=== PATIENT | female | born 1995 | race Caucasian/White ===

== ENCOUNTER 2023-04-21 13:54 | Observation (INO) | payer OTHER, MEDICAID, SELFPAY ==
[2023-04-21] VITALS (45 sets, daily range): BP systolic 71–130; BP diastolic 44–88; PULSE 59–98; RESP 12–43; TEMP 36.2–38.2; O2SAT 97–100; BMI 28.9; BMI 31.8
--- NOTE | 2023-04-21 | PATH_ITS ---
[facility] Accession Number: [id number] No. of containers..01 Tissue . 01 Material submitted: . endometrium - EMB . 01 Diagnosis: Endometrium, Curettage: Inflamed, necrotic, and degenerated chorionic villi, decidual tissues, and endometrium. Negative for gestational trophoblastic disease. [facility] 05/03/2023 1713 Local . 01 Electronically signed: . Krysten Holman MD, Pathologist NPI- [id number] . 01 Gross description: . The specimen is received fresh in a leaking container and subsequently placed in formalin per client, labeled with the patient's name, , and no additional designation, consists of large amount of hemorrhagic fluid that was turned into a cell block along with multiple red-medina spongy soft tissue fragments admixed with solidified hemorrhagic material aggregating to 6.4 x 5.6 x 0.7 cm. The specimen is submitted entirely in cassettes A1-A16 with the aforementioned cell block in A16. ([id number]) /MRV 04/27/2023 1437 Local . 01 Pathologist provided ICD-10: O02.1 . 01 CPT . 264210 Performed at: 01 [facility] [address] [place] [address] Suite [facility] [place], [place], [place] [id number] MD Vance Koch MD Phone: [phone]
[2023-04-21 14:24] LABS: Add Manual Diff / Slide Review NO; Basophils Absolute Auto 200 /uL (0-100); Basophils Percent Auto 1.3 % (0-2); Eosinophils Absolute Auto 100 /uL (0-450); Eosinophils Percent Auto 0.7 % (2-4); Hematocrit 34.4 % (36-46); Hemoglobin 11.1 g/dL (12.0-16.0); Lymphocytes Absolute Auto 2000 /uL (1100-4500); Lymphocytes Percent Auto 15.3 % (25-40); Mean Corpuscular HGB Conc 32.4 % (30-36); Mean Corpuscular Volume 83.1 fL (80-100); Monocytes Absolute Auto 700 /uL (0-900); Monocytes Percent Auto 5.2 % (3-14); Neutrophils Absolute Auto 10100 /uL (1500-7000); Neutrophils Percent Auto 77.5 % (50-75); Platelet Count 322 X10^3/uL (150-400); Red Blood Cell Count 4.14 X10^6/uL (4.0-5.2); Red Cell Distribution Width 23.2 % (11.6-14.8)
[2023-04-21] MEDS: ONDANSETRON 4 MG/2 ML INJ IV (14:30)
--- NOTE | 2023-04-21 14:30 | DI.US.S_ITS ---
PROCEDURE: US PELVIC COMPLETE INDICATIONS: 1.5 WEEK WITH TWIN VAGINAL DELIVERY. HEMORRHAGE X 1 DAY. Positive beta HCG. TECHNIQUE: Real-time scanning was performed of the pelvic organs, with image documentation. Additional endovaginal scanning was necessary due to incomplete visualization of the adnexal and endometrial structures by transabdominal scanning. COMPARISON: None. FINDINGS: Uterus: Uterus is anteverted and enlarged in size at 13.7 x 9.1 x 8.1 cm. The myometrium is heterogeneous, with increased vascularity. The endometrium measures 1.8 mm combined thickness. Multiple heterogeneous regions within the endometrium, without vascularity. Ovaries: The right ovary measures 3 x 1.6 x 1.3 cm, with a calculated ovarian volume of 3 cc. The left ovary measures 3.4 x 1.0 x 1.6 cm, with a calculated ovarian volume of 2 point cc. The ovaries have a normal sonographic appearance. Less than 12 follicles can be seen in each ovary. No adnexal masses are seen. Other: No pathologic free abdominal or pelvic fluid. IMPRESSION: Post gravid uterus. Avascular and debris within the endometrium. Given the positive beta hCG, findings are concerning for retained products of conception. No evidence of endometritis. We strive to produce accurate, complete, and clear reports of imaging services. To assist us in improving patient care, this report was composed using standard report templates and voice recognition software. Therefore, it may contain abnormal punctuation, insertions and/or omissions. Occasional wrong-word or sound-alike substitutions may occur. Though we review the report and make efforts to correct it, we do recommend that the report be read carefully in proper context to recognize any text inaccuracies. Dictated by: Uvaldo Hodge M.D. on 04/21/2023 at 15:12 Approved by: Uvaldo Hodge M.D. on 04/21/2023 at 15:14
[2023-04-21] MEDS: MORPHINE 4 MG/ML INJ IV (14:31)
[2023-04-21 14:34] LABS: INR 1.1 (0.9-1.3); Prothrombin Time 12.3 SECONDS (10.1-12.7)
[2023-04-21 14:37] LABS: PTT Partial Thromboplastin Tim 29 SECONDS (26-36)
[2023-04-21 14:42] LABS: Anisocytosis 2+
--- NOTE | 2023-04-21 14:45 | ED.PREGNANCY ---
HPI - General Chief complaint: Vaginal Bleeding Stated complaint: losing a lot of blood after giving Time Seen by Provider: 04/21/23 14:08 Source: patient Mode of arrival: Ambulatory Limitations: no limitations History of Present Illness HPI Narrative: 27yoF at 13 days presents for vaginal bleeding . Patient had twin vaginal delivery at [facility] on 04/08/2023. This is complicated by hemorrhage requiring 2 units PRBCs, 1 unit FFP, application of a Klaudia device. Patient was subsequently discharged home and has been recovering without complication until today. Patient noticed lower abdominal cramping and a large volume of blood and clots gush from her vagina. Patient is currently complaining of significant suprapubic pain and cramping as well as vaginal bleeding. Related Data Allergies Allergy/AdvReac Type Severity Reaction Status Date / Time fluconazole [From Diflucan] Allergy Hives Verified 04/21/23 14:17 Review of Systems Review of Systems Narrative: Negative except as marked Exam Initial Vital Signs Initial Vital Signs: Vital Signs Temperature 99.3 F 04/21/23 14:12 Pulse Rate 78 04/21/23 14:12 Respiratory Rate 20 04/21/23 14:12 Blood Pressure 115/63 04/21/23 14:12 Pulse Oximetry 99 04/21/23 14:12 Oxygen Delivery Method Room Air 04/21/23 14:12 Const: Awake, alert, in pain, uncomfortable Eyes: PERRL, EOMI, conjunctiva normal ENT: Atraumatic, dentition normal, mucous membranes moist Cardiac: regular rate, regular rhythm RESP: unlabored, clear bilaterally, no wheezing GI: Atraumatic, soft, suprapubic tenderness to palpation : Security Test Engineer present, oozing dark red blood from cervical os Skin: Warm, Dry, intact, no rashes Neuro: AO x3, CN II-XII grossly intact, moves all extremities Psych: Appropriate for given condition Course Course Course Narrative: Large amount of vaginal bleeding 13 days . Patient does have blood actively oozing from her cervical os. Call placed to Dr. Coffey of OBGYN, who requested a ultrasound to assess for retained products of conception. Recommended 0.3 mg IM Methergine as well as 1000 mg of TXA. Requested a call back once the ultrasound was performed. Patient is hemodynamically stable. Initial hemoglobin 11. Orders Ordered: ED Orders 04/21/23 14:11 EKG-12 Lead Stat 04/21/23 14:14 Beta HCG, Quant [HCG Quantitative /Beta subunit] Stat Complete Blood Count AUTO DIFF Stat Comprehensive Metabolic Panel Stat PTT Partial Thromboplastin Brijesh Stat Prothrombin Time INR Stat Type and Screen Stat 04/21/23 14:30 US pelvic complete Stat Morphine Sulfate (Morphine 4 Mg/Ml Inj) 4 mg IV Q4HR PRN PRN Reason: Pain, Severe (7-10) Ondansetron HCl (Ondansetron 4 Mg/2 Ml Inj) 4 mg IV NOW PRN PRN Reason: Nausea And Vomiting Last Admin: 04/21/23 14:30 Dose: 4 mg Documented By: ANDREE Ondansetron HCl (Ondansetron 4 Mg Odt) 4 mg SL NOW PRN PRN Reason: Nausea And Vomiting Discontinued Medications Tranexamic Acid 1,000 mg/ (Sodium Chloride) 100 mls @ 600 mls/hr IV NOW ONE Stop: 04/21/23 15:09 Last Infusion: 04/21/23 15:05 Dose: Infused Documented By: Admin: 04/21/23 14:52 Dose: 600 mls/hr Documented By: ANDREE Methylergonovine Maleate (Methylergonovine 0.2 Mg/Ml Vial) 0.3 mg IM NOW ONE Stop: 04/21/23 14:31 Last Admin: 04/21/23 14:48 Dose: 0.3 mg Documented By: ANDREE Morphine Sulfate (Morphine 4 Mg/Ml Inj) 4 mg IV NOW ONE Stop: 04/21/23 14:17 Last Admin: 04/21/23 14:31 Dose: 4 mg Documented By: ANDREE Reevaluation(s) Reevaluation #1: Patient remains hemodynamically stable, vital signs reviewed. Hemoglobin 11. Ultrasound does show findings that are concerning for retained products of conception. OBGYN notified, they will take the patient to the OR for removal of retained products. Patient and family updated at bedside, they are in agreement with plan. Vital Signs Vital signs: Vital Signs - 8 hr 04/21/23 14:12 04/21/23 14:12 04/21/23 14:15 Temperature 99.3 F Pulse Rate 78 81 78 Respiratory Rate 20 23 43 H Blood Pressure 115/63 Pulse Oximetry 99 100 100 Oxygen Delivery Method Room Air 04/21/23 14:15 04/21/23 14:20 04/21/23 14:20 Temperature Pulse Rate 79 Respiratory Rate 30 H Blood Pressure 106/66 105/64 Pulse Oximetry 100 Oxygen Delivery Method 04/21/23 14:25 04/21/23 14:30 04/21/23 14:30 Temperature Pulse Rate 86 68 Respiratory Rate 22 28 H Blood Pressure 101/55 L Pulse Oximetry 100 100 Oxygen Delivery Method Room Air Room Air 04/21/23 14:35 04/21/23 14:40 04/21/23 14:45 Temperature Pulse Rate 70 71 71 Respiratory Rate 20 19 26 H Blood Pressure Pulse Oximetry 100 100 100 Oxygen Delivery Method 04/21/23 14:50 04/21/23 14:55 04/21/23 14:57 Temperature Pulse Rate 63 73 64 Respiratory Rate 29 H 32 H Blood Pressure Pulse Oximetry 100 100 100 Oxygen Delivery Method Room Air 04/21/23 14:57 04/21/23 15:00 04/21/23 15:00 Temperature Pulse Rate 68 Respiratory Rate 25 H Blood Pressure 98/60 96/51 L Pulse Oximetry 100 Oxygen Delivery Method 04/21/23 15:05 04/21/23 15:05 04/21/23 15:10 Temperature Pulse Rate 70 69 Respiratory Rate 25 H 23 Blood Pressure 96/57 L Pulse Oximetry 100 99 Oxygen Delivery Method 04/21/23 15:10 04/21/23 15:15 04/21/23 15:20 Temperature Pulse Rate 68 74 Respiratory Rate 28 H 28 H Blood Pressure 103/59 L Pulse Oximetry 100 100 Oxygen Delivery Method MDM - OB/Uterine Contractions Lab Data 04/21/23 14:14 04/21/23 14:14 Labs: Lab Results 04/21/23 Range/Units 14:14 WBC 13.0 H (4.5-11.0) X10^3/uL RBC 4.14 (4.0-5.2) X10^6/uL Hgb 11.1 L (12.0-16.0) g/dL Hct 34.4 L (36-46) % MCV 83.1 (80-100) fL MCH 27.0 (26-34) PG MCHC 32.4 (30-36) % RDW 23.2 H (11.6-14.8) % Plt Count 322 (150-400) X10^3/uL Neut % (Auto) 77.5 H (50-75) % Lymph % (Auto) 15.3 L (25-40) % [place] % (Auto) 5.2 (3-14) % Eos % (Auto) 0.7 L (2-4) % Baso % (Auto) 1.3 (0-2) % Neut # (Auto) 26314 H (9639-7687) /uL Lymph # (Auto) 2000 (3807-0427) /uL [place] # (Auto) 700 (0-900) /uL Eos # (Auto) 100 (0-450) /uL Baso # (Auto) 200 H (0-100) /uL RBC Morphology See below Anisocytosis 2+ H PT 12.3 (10.1-12.7) SECONDS INR 1.1 (0.9-1.3) APTT 29 (26-36) SECONDS Sodium 136 L (137-145) mmol/L Potassium 3.9 (3.4-5.1) mmol/L Chloride 105 (98-107) mmol/L Carbon Dioxide 24 (22-32) mmol/L BUN 13 (7-17) mg/dL Creatinine 0.59 (0.52-1.04) mg/dL Estimated GFR > 60 (>60) mL/min BUN/Creatinine Ratio 22.0 (6-22) Glucose 94 (70-100) mg/dL Calcium 9.0 (8.4-10.2) mg/dL Total Bilirubin 0.4 (0.2-1.3) mg/dL AST 35 (14-36) IU/L ALT 24 (<35) IU/L Alkaline Phosphatase 240 H (38-126) U/L Total Protein 7.0 (6.3-8.2) g/dL Albumin 3.8 (3.5-5.0) g/dL Globulin 3.2 (1.7-4.1) g/dL Albumin/Globulin Ratio 1.2 (1.0-2.8) HCG, Quant 22.2 mIU/mL Blood Type O Positive Antibody Screen Negative Critical Care Time Critical Care Time Critical Care Time: Yes Total Critical Care Time: 33 Attestation: Retained products of conception causing hemorrhage requiring emergent OR for D and C. Discharge Plan Departure Patient Disposition: Admitted as Observation Clinical Impression: Retained products of conception, hemorrhage Admit Date/Time: 04/21/23 15:21 Admit Provider: Dayton Coffey
[2023-04-21 14:47] LABS: Alanine Aminotransferase 24 IU/L (<35); Albumin 3.8 g/dL (3.5-5.0); Albumin Globulin Ratio 1.2 (1.0-2.8); Alkaline Phosphatase 240 U/L (38-126); Aspartate Aminotransferase 35 IU/L (14-36); Bilirubin Total 0.4 mg/dL (0.2-1.3); Blood Urea Nitrogen 13 mg/dL (7-17); Carbon Dioxide 24 mmol/L (22-32); Chloride 105 mmol/L (98-107); Estimated Glomerular Filt Rate > 60 mL/min (>60); Globulin 3.2 g/dL (1.7-4.1); Glucose 94 mg/dL (70-100); HEMOLYSIS 26 (0-50); Potassium 3.9 mmol/L (3.4-5.1); Sodium 136 mmol/L (137-145)
[2023-04-21] MEDS: METHYLERGONOVINE 0.2 MG/ML VIAL 0.3 MG IM (14:48)
[2023-04-21] MEDS: TRANEXAMIC ACID 1,000 MG in SODIUM CHLORIDE 0.9% 100 ML 600 MG IV (14:52)
[2023-04-21 15:02] LABS: HCG Quantitative /Beta subunit 22.2 mIU/mL
--- NOTE | 2023-04-21 15:33 | PC.NURSE ---
pt's intake for the day : 0900 whole bagel with cream cheese, 10 oz of OJ.; 1100 Ritz crackers (5). [phone] 8 oz of water
--- NOTE | 2023-04-21 16:30 | P.HPOB_ITS ---
History of Present Illness History of Present Illness Reason for admission: vaginal bleeding Narrative: Leonidas Dorsey is a 27 year old [id number] s/p of mono-di twins at [facility] in [place], [place] on who presents with significant vaginal bleeding now almost 2 weeks out from her vaginal . The itself was complicated by hemorrhage requiring suction induced tamponade and transfusion with 2U PRBC. Patient received IM Methergine and IV TXA in our ED which has helped reduced bleeding but pelvic US shows: FINDINGS: Uterus: Uterus is anteverted and enlarged in size at 13.7 x 9.1 x 8.1 cm. The myometrium is heterogeneous, with increased vascularity. The endometrium measures 18 mm combined thickness. Multiple heterogeneous regions within the endometrium, without vascularity. Ovaries: The right ovary measures 3 x 1.6 x 1.3 cm, with a calculated ovarian volume of 3 cc. The left ovary measures 3.4 x 1.0 x 1.6 cm, with a calculated ovarian volume of 2 point cc. The ovaries have a normal sonographic appearance. Less than 12 follicles can be seen in each ovary. No adnexal masses are seen. Other: No pathologic free abdominal or pelvic fluid. IMPRESSION: Post gravid uterus. Avascular and debris within the endometrium. Given the positive beta hCG, findings are concerning for retained products of conception. No evidence of endometritis. After discussion of all options, will move forward with suction curettage of the uterus to remove any remaining products of conception and stanch the patient's bleeding. PFSH Social History household members: spouse Smoking Status: Never smoker Meds Home Medications and Allergies Allergies Allergy/AdvReac Type Severity Reaction Status Date / Time fluconazole [From Diflucan] Allergy Hives Verified 04/21/23 14:17 Review of Systems Review of Systems Narrative: Problem-specific ROS positives included in HPI Exam Vital Signs (past 8 hours): - 04/21/23 14:12 04/21/23 14:12 04/21/23 14:15 Temperature 99.3 F Pulse Rate 78 81 78 Respiratory Rate 20 23 43 H Blood Pressure 115/63 Pulse Oximetry 99 100 100 Oxygen Delivery Method Room Air 04/21/23 14:15 04/21/23 14:20 04/21/23 14:20 Temperature Pulse Rate 79 Respiratory Rate 30 H Blood Pressure 106/66 105/64 Pulse Oximetry 100 Oxygen Delivery Method 04/21/23 14:25 04/21/23 14:30 04/21/23 14:30 Temperature Pulse Rate 86 68 Respiratory Rate 22 28 H Blood Pressure 101/55 L Pulse Oximetry 100 100 Oxygen Delivery Method Room Air Room Air 04/21/23 14:35 04/21/23 14:40 04/21/23 14:45 Temperature Pulse Rate 70 71 71 Respiratory Rate 20 19 26 H Blood Pressure Pulse Oximetry 100 100 100 Oxygen Delivery Method 04/21/23 14:50 04/21/23 14:55 04/21/23 14:57 Temperature Pulse Rate 63 73 64 Respiratory Rate 29 H 32 H Blood Pressure Pulse Oximetry 100 100 100 Oxygen Delivery Method Room Air 04/21/23 14:57 04/21/23 15:00 04/21/23 15:00 Temperature Pulse Rate 68 Respiratory Rate 25 H Blood Pressure 98/60 96/51 L Pulse Oximetry 100 Oxygen Delivery Method 04/21/23 15:05 04/21/23 15:05 04/21/23 15:10 Temperature Pulse Rate 70 69 Respiratory Rate 25 H 23 Blood Pressure 96/57 L Pulse Oximetry 100 99 Oxygen Delivery Method 04/21/23 15:10 04/21/23 15:15 04/21/23 15:20 Temperature Pulse Rate 68 74 Respiratory Rate 28 H 28 H Blood Pressure 103/59 L Pulse Oximetry 100 100 Oxygen Delivery Method 04/21/23 15:24 04/21/23 15:24 04/21/23 15:25 Temperature Pulse Rate 59 L 67 Respiratory Rate 23 19 Blood Pressure 111/66 Pulse Oximetry 99 99 Oxygen Delivery Method 04/21/23 15:25 04/21/23 15:30 04/21/23 15:30 Temperature Pulse Rate 59 L Respiratory Rate 17 Blood Pressure 112/69 104/62 Pulse Oximetry 99 Oxygen Delivery Method 04/21/23 15:35 04/21/23 15:35 04/21/23 15:40 Temperature Pulse Rate 59 L 68 Respiratory Rate 20 13 Blood Pressure 105/62 Pulse Oximetry 99 99 Oxygen Delivery Method 04/21/23 15:40 04/21/23 15:45 04/21/23 15:45 Temperature Pulse Rate 72 Respiratory Rate 25 H Blood Pressure 108/68 113/73 Pulse Oximetry 100 Oxygen Delivery Method 04/21/23 15:50 04/21/23 15:50 04/21/23 15:55 Temperature Pulse Rate 68 71 Respiratory Rate 22 19 Blood Pressure 116/74 Pulse Oximetry 99 99 Oxygen Delivery Method 04/21/23 15:55 04/21/23 16:00 04/21/23 16:00 Temperature Pulse Rate 67 Respiratory Rate 28 H Blood Pressure 117/74 117/70 Pulse Oximetry 97 Oxygen Delivery Method 04/21/23 16:05 04/21/23 16:05 04/21/23 16:21 Temperature 99.0 F Pulse Rate 70 78 Respiratory Rate 29 H 20 Blood Pressure 116/64 100/61 Pulse Oximetry 99 97 Oxygen Delivery Method Room Air Oxygen Delivery Method Room Air Const General: cooperative and comfortable Nutritional Appearance: average body habitus Orientation: alert and oriented x3 HENMT Head: normal to inspection, atraumatic and abrasion Ears: hearing grossly normal bilaterally Face and sinus: face symmetric Eyes General: appearance normal, both eyes and all related structures Conjunctivae: conjunctivae normal Sclera: sclerae normal EOM: EOM intact bilaterally Neck Neck: normal visual inspection Resp Effort & Inspection: normal respiratory effort and able to speak in complete sentences Auscultation: clear to auscultation bilaterally Cardio Rate: regular rate Rhythm: regular rhythm Heart Sounds: S1 normal, S2 normal and no murmurs GI Inspection: normal to inspection Palpation: soft and no hepatosplenomegaly External Female Exam: other (Moderate amount of BRB PV) Bimanual Exam- Vagina & Uterus: enlarged (12-14 wks) and tender (Moderate) Extrem General: no calf tenderness Psych Appearance: grossly normal Mental Status: mental status grossly normal Speech and Movement: speech and movement normal Mood: congruent mood Affect: normal affect Attitude: cooperative Thought Process: normal Thought Content: normal Judgment: judgment good Objective Labs 04/21/23 14:14 04/21/23 14:14 Labs: Laboratory Results - last 24 hr 04/21/23 14:14 WBC 13.0 H RBC 4.14 Hgb 11.1 L Hct 34.4 L MCV 83.1 MCH 27.0 MCHC 32.4 RDW 23.2 H Plt Count 322 Neut % (Auto) 77.5 H Lymph % (Auto) 15.3 L [place] % (Auto) 5.2 Eos % (Auto) 0.7 L Baso % (Auto) 1.3 Neut # (Auto) 71548 H Lymph # (Auto) 2000 [place] # (Auto) 700 Eos # (Auto) 100 Baso # (Auto) 200 H RBC Morphology See below Anisocytosis 2+ H Sodium 136 L Potassium 3.9 Chloride 105 Carbon Dioxide 24 BUN 13 Creatinine 0.59 Estimated GFR > 60 BUN/Creatinine Ratio 22.0 Glucose 94 Calcium 9.0 Total Bilirubin 0.4 AST 35 ALT 24 Alkaline Phosphatase 240 H Total Protein 7.0 Albumin 3.8 Globulin 3.2 Albumin/Globulin Ratio 1.2 HCG, Quant 22.2 Blood Type O Positive Antibody Screen Negative Assessment & Plan Assessment and plan (1) hemorrhage: Qualifiers: hemorrhage type: delayed hemorrhage Qualified Code(s): O72.2 - Delayed and secondary hemorrhage Status: Acute (2) Retained products of conception: Status: Acute Plan Patient counseled regarding alternatives, risks, benefits, potential complications associated with suction curettage of the uterus. With full understanding of the above, a written consent was executed, signed, and witnessed this date. Time Spent With Patient Time with patient: less than 30 minutes
--- NOTE | 2023-04-21 17:27 | PM.PREOP ---
Pre-operative Note COVID-19 COVID-19 status: Not tested Interval Note History & Physical reviewed/Exam performed by Physician: Yes Changes to H&P: No
--- NOTE | 2023-04-21 17:44 | SUR.OPER ---
Lithotomy on padded OR bed, head on pillow, arms secured on padded arm boards at <90 degrees abduction. Legs secured in padded yellow fins stirrups.
[2023-04-21] MEDS: CEFAZOLIN 2 GM/100 ML PREMIX 100 ML IV (17:45)
[2023-04-21] MEDS: CARBOPROST 250 MCG/ML AMPUL INJ (17:52)
--- NOTE | 2023-04-21 17:55 | PM.GYNOP.1 ---
Operative Date/Time/Diagnoses Date of procedure: 04/21/23 Time of procedure: 17:25 Pre-op diagnosis: Delayed post- hemorrhage due to retained products of conception Post-op diagnosis: same Procedure & Clinicians Procedure: Procedures X Operation Date: 04/21/23 17:15 Actual Procedure Side Surgeon p Suction Curettage of the uterus Dayton Coffey MD Indications: Leonidas Dorsey is a 27 year old [id number] s/p of mono-di twins at [facility] in [place], [place] on who presents with significant vaginal bleeding now almost 2 weeks out from her vaginal . The itself was complicated by hemorrhage requiring suction induced tamponade and transfusion with 2U PRBC. Patient received IM Methergine and IV TXA in our ED which has helped reduced bleeding but pelvic US shows: FINDINGS: Uterus: Uterus is anteverted and enlarged in size at 13.7 x 9.1 x 8.1 cm. The myometrium is heterogeneous, with increased vascularity. The endometrium measures 18 mm combined thickness. Multiple heterogeneous regions within the endometrium, without vascularity. Ovaries: The right ovary measures 3 x 1.6 x 1.3 cm, with a calculated ovarian volume of 3 cc. The left ovary measures 3.4 x 1.0 x 1.6 cm, with a calculated ovarian volume of 2 point cc. The ovaries have a normal sonographic appearance. Less than 12 follicles can be seen in each ovary. No adnexal masses are seen. Other: No pathologic free abdominal or pelvic fluid. IMPRESSION: Post gravid uterus. Avascular and debris within the endometrium. Given the positive beta hCG, findings are concerning for retained products of conception. No evidence of endometritis. After discussion of all options, will move forward with suction curettage of the uterus to remove any remaining products of conception and stanch the patient's bleeding. Surgeon: Dayton Coffey Anesthesia Type: General Operative Notes Findings: The uterus is 12-14 weeks in size with an endometrial cavity that sounds to 11 cm. Within the cavity is large amount of clots and fragments of what appears to be necrotic products of conception. The aggregate suction curettage specimen was submitted for pathologic evaluation. Closure Type: not applicable Specimen(s): endometrial curettings Estimated blood loss (mL): 150 Blood products transfused: none Procedure in detail: With the patient under satisfactory general anesthesia in the modified dorsal lithotomy position, the perineum, vagina, and lower abdomen were prepped and draped in the usual manner for suction curettage. Preoperatively the patient received 2 g of Ancef IV. A pre-surgical safety time-out was then taken in accordance with [facility] Main OR protocols. At the initiation of the case, the patient received 10 units of Pitocin IM. A bivalve speculum was gently inserted into the vaginal canal and the vaginal canal suction free of clots and debris. The anterior lip of the cervix was then grasped with a ring forcep and the endometrial cavity was gently sounded. A 10 mm curved suction curette was then introduced gently into the endometrial cavity and suction applied. Clots and debris has described above were obtained and submitted as a pathologic specimen. Gentle sharp curettage was then performed circumferentially throughout the cavity and the suction catheter was reintroduced a final time to remove clots and debris remaining within the endometrial cavity. Hemabate 250 mcg was then given IM and another 1000 mg of tranexamic acid was given IV. Speculum was removed from the vagina after assurance that the bleeding had subsided significantly. Patient was then awakened from anesthesia and transferred to PACU for a period of observation of recovery after having tolerated the procedure well. Complications: none Post-operative Condition: stable Disposition: PACU Plan for aftercare: Routine postoperative care.
[2023-04-21] MEDS: ONDANSETRON 4 MG ODT SL (18:22)
[2023-04-21] MEDS: KETOROLAC 30 MG/ML VIAL IV (18:28)
[2023-04-21] MEDS: hydrOXYzine pamoate 25 MG CAPSULE 50 MG PO (18:28)
[2023-04-21] MEDS: LORazepam 2 MG/ML INJ 0.25 MG IV ×2 (18:37→18:48)
--- NOTE | 2023-04-21 19:11 | SUR.PHASEI ---
1950 Dr Coffey contacted r/t increased bleeding received verbal order for mtp protocol
[2023-04-21 19:13] LABS: Hematocrit 28.2 % (36-46)
--- NOTE | 2023-04-21 20:09 | SUR.PHASEI ---
1935- MD Coffey states cancel MTP, orders two units crossmatched blood, pt consented and 2 units prbcs started in PACU with Dr. Bhandari 2001- pt returned to OR with MD Coffey
--- NOTE | 2023-04-21 20:20 | SUR.OPER ---
Lithotomy on padded OR bed, head on pillow, arms secured on padded arm boards at <90 degrees abduction. Legs secured in padded yellow fins stirrups.
--- NOTE | 2023-04-21 20:58 | PM.GYNOP.1 ---
Operative Date/Time/Diagnoses Date of procedure: 04/21/23 Time of procedure: 19:55 Pre-op diagnosis: hemorrhage unresponsive to uterotonic agents Post-op diagnosis: same Procedure & Clinicians Procedure: Procedures Operation Date: 04/21/23 17:15 <No data on this case meets the specified criteria> Operation Date: 04/21/23 17:15 Actual Procedure Side Surgeon p Dilation and Curettage Dayton Coffey MD Operation Date: 04/21/23 20:30 Actual Procedure Side Surgeon p Placement of Bakri Balloon Dayton Coffey MD Indications: Following suction curettage earlier this evening, the patient despite having received IV Pitocin, IM Methergine, IM Hemabate, and 2 doses of IV tranexamic acid continued to have significant bleeding in the PACU with decrease in her mean arterial pressure consistent with hypovolemia. Patient was transfused with 2 units packed red blood cells and after informed consent obtain the patient has now taken back to the operating room for placement of a Bakri balloon to stanch the persistent post bleeding which has thus far been unresponsive to uterotonics agents and evacuation of the endometrial cavity. Surgeon: Dayton Coffey Anesthesia Type: Sedation Operative Notes Findings: Active uterine bleeding with clots in the vagina and within the endometrial cavity which were all evacuated prior to placement of the Bakri balloon Closure Type: not applicable Specimen(s): none Estimated blood loss (mL): 250 Blood products transfused: none Procedure in detail: Pre-surgical safety time-out was taken in accordance with [facility] Main OR protocols. With the patient under satisfactory IV sedation, she was placed in the modified dorsal lithotomy position and examination under anesthesia performed. Clots in the vaginal canal were evacuated with suction after placement of a bivalve speculum and packing forceps as well as Rodríguez stone forceps were used to grasp and remove clots within the endometrial cavity. Once the endometrial cavity was assured to be empty, the Bakri balloon was introduced into the endometrial cavity and the balloon inflated to a total of 200 cc of sterile saline with marked decrease in blood loss PV. Once marked decrease of blood loss had been noted, the Bakri balloon was secured in place with 6 4 x 4 gauze wrapped around the Bakri balloon to secured in the uppermost part of the vagina and lower uterine segment. Patient was then awakened and transferred to the PACU for a period of observation and recovery after having tolerated the procedure well. Complications: none Post-operative Condition: stable Disposition: PACU Plan for aftercare: Routine postoperative care in the center.
[2023-04-21] MEDS: OXYCODONE IR 5 MG TABLET PO (21:49)
[2023-04-21] MEDS: HYDROMORPHONE 1 MG INJ IV ×2 (21:49→23:51)
[2023-04-21] MEDS: LACTATED RINGERS 1,000 ML 125 ML IV (21:50)
--- NOTE | 2023-04-21 22:26 | PC.NURSE ---
2130- recieved pt from PACU. pt stating her pain is 8 on pain scale. lower abdominal cramping pain present. hydromorphone and oxycodone given with effective results.
--- NOTE | 2023-04-21 22:28 | PC.NURSE ---
pt able to take fluids and eat small snack without any difficulty.
--- NOTE | 2023-04-21 22:30 | PC.NURSE ---
bakri ballon remains in place with minimal bleeding present. VSS.
--- NOTE | 2023-04-21 22:58 | PC.NURSE ---
pts is at pts bedside. pt is awake alert oriented and eating snacks, drinking fluids without any nausea or difficulty. states pain is now minimal. cont to monitor. pericare completed and underpads changed. bakri balloon in place. minimal bleeding present.
[2023-04-21] MEDS: ACETAMINOPHEN 325 MG TABLET 650 MG PO (23:50)
[2023-04-22] VITALS (25 sets, daily range): BP systolic 98–112; BP diastolic 51–65; PULSE 90–130; RESP 16–22; TEMP 36.8–38.7; O2SAT 97–99
--- NOTE | 2023-04-22 00:03 | PC.NURSE ---
Dr. Coffey called at 0107 for update on pt. discussed pt running temp. ordered urine culture, sent to lab. tylenol given for temp of 101.6. cont to monitor. pt c/o inreased pain also gave dilaudid 1mg. no new drainage in bakri or on peripad.
[2023-04-22] MEDS: OXYCODONE IR 5 MG TABLET PO ×4 (01:02→19:57)
[2023-04-22] MEDS: CEFAZOLIN 2 GM/100 ML PREMIX 100 ML IV (01:02)
[2023-04-22] MEDS: IBUPROFEN 400 MG TABLET 600 MG PO ×3 (01:02→12:30)
--- NOTE | 2023-04-22 02:05 | PC.NURSE ---
20cc defated from Bakri Balloon per MD order. pt using breast pump at this time. obtained a good amount of breast milk. encouraged to pump every 3 hours to keep milk supply adequate.
[2023-04-22] MEDS: METHYLERGONOVINE 0.2 MG TABLET PO ×2 (04:32→19:30)
--- NOTE | 2023-04-22 05:34 | PC.NURSE ---
pt pumping again at 0500, temp still 100.7, Tmax 101.6. pt seems comfortable with current medication regime of Tylenol, ibuprofen and oxycodone given at regular intervals. no bleeding noted per JR drain nor niall pad. emptied 1700cc UOP clear. pt taking po well.
--- NOTE | 2023-04-22 06:11 | PC.NURSE ---
update given to Dr. Coffey. orders received and read back.
[2023-04-22 06:20] LABS: Mean Corpuscular HGB Conc 32.9 % (30-36); Mean Corpuscular Hemoglobin 26.7 PG (26-34); Mean Corpuscular Volume 81.2 fL (80-100); Platelet Count 176 X10^3/uL (150-400); Red Blood Cell Count 2.53 X10^6/uL (4.0-5.2); Red Cell Distribution Width 20.9 % (11.6-14.8)
[2023-04-22] MEDS: LACTATED RINGERS 1,000 ML 125 ML IV (06:22)
[2023-04-22] MEDS: ACETAMINOPHEN 325 MG TABLET 650 MG PO ×3 (06:23→19:57)
[2023-04-22 06:29] LABS: Lactate (Lactic Acid) 2.9 mmol/L (0.7-2.1)
[2023-04-22 06:30] LABS: Alanine Aminotransferase 18 IU/L (<35); Albumin 2.6 g/dL (3.5-5.0); Albumin Globulin Ratio 1.2 (1.0-2.8); Alkaline Phosphatase 119 U/L (38-126); Aspartate Aminotransferase 29 IU/L (14-36); BUN Creatinine Ratio 15.5 (6-22); Bilirubin Total 0.1 mg/dL (0.2-1.3); Blood Urea Nitrogen 9 mg/dL (7-17); Carbon Dioxide 22 mmol/L (22-32); Chloride 106 mmol/L (98-107); Estimated Glomerular Filt Rate > 60 mL/min (>60); Globulin 2.2 g/dL (1.7-4.1); Glucose 132 mg/dL (70-100); HEMOLYSIS < 15 (0-50); Sodium 135 mmol/L (137-145); Total Protein 4.8 g/dL (6.3-8.2)
--- NOTE | 2023-04-22 06:31 | PC.NURSE ---
25cc removed from Bakri Balloon per MD order. tylenol and ibuprofen also given per routine order.
[2023-04-22 06:37] LABS: Hematocrit 20.6 % (36-46); Hemoglobin 6.8 g/dL (12.0-16.0)
[2023-04-22 06:38] LABS: Add Manual Diff / Slide Review YES
[2023-04-22 06:58] LABS: Neutrophils Absolute Manual 10530 /uL (3000-5900); Total Cells Counted 100
[2023-04-22 06:59] LABS: Rouleaux 1+
[2023-04-22 07:00] LABS: RBC Morphology Normal Morphology
[2023-04-22 08:10] LABS: Reflexed Lactate in 2 Hours Y
--- NOTE | 2023-04-22 08:15 | PC.NURSE ---
0750 Es Coffey at bedside. RN removed 30cc from Bakri per es Coffey. No blood from vagina noted on pad. Small amount of blood in bulb from Bakri, es Coffey confirmed WNL. Patient has blood infusing. Up eating breakfast. at bedside.
--- NOTE | 2023-04-22 08:24 | P.PNOB_ITS ---
Subjective - OB Subjective Patient comments: pain well controlled and flatus present Narrative: Overnight the patient has done well with her Bakri balloon in place. She is had minimal drainage through the Bakri and no bleeding per vagina. Patient has run temperatures as high as 101.7 overnight but is currently afebrile. Her pain level is well controlled with oral pain medications but she did require a couple of doses of Dilaudid postop last evening. She is tolerating a regular diet but has not been ambulating. Date Patient Seen: 04/22/23 Time Patient Seen: 08:25 Exam Vital Signs (past 8 hours): - 04/22/23 01:00 04/22/23 04:00 04/22/23 07:18 Temperature 100.6 F H 100.7 F H 98.9 F Pulse Rate 90 103 H 111 H Respiratory Rate 16 16 18 Blood Pressure 103/64 111/63 108/65 Pulse Oximetry 97 98 04/22/23 07:39 Temperature 99.0 F Pulse Rate 101 H Respiratory Rate 16 Blood Pressure 108/59 L Pulse Oximetry Oxygen Delivery Method Room Air Const General: cooperative and comfortable Nutritional Appearance: average body habitus Orientation: alert and oriented x3 HENMT Head: normal to inspection, atraumatic and abrasion Ears: hearing grossly normal bilaterally Face and sinus: face symmetric Eyes General: appearance normal, both eyes and all related structures Conjunctivae: conjunctivae normal Sclera: sclerae normal EOM: EOM intact bilaterally Neck Neck: normal visual inspection Resp Effort & Inspection: normal respiratory effort and able to speak in complete sentences Auscultation: clear to auscultation bilaterally Cardio Rate: regular rate Rhythm: regular rhythm Heart Sounds: S1 normal, S2 normal and murmur (3/6 SE flow murmur) systolic GI Inspection: normal to inspection and incision (Surgical dressings clean and dry) Palpation: soft, no hepatosplenomegaly and tender (Mild, diffuse postsurgical tenderness, lower abd) Auscultation: normal bowel sounds External Female Exam: normal external appearance and other (No significant bleeding noted, Bakri in place) Extrem General: no calf tenderness Psych Appearance: grossly normal Mental Status: mental status grossly normal Speech and Movement: speech and movement normal Mood: congruent mood Affect: normal affect Attitude: cooperative Thought Process: normal Thought Content: normal Judgment: judgment good Objective Imaging Limited pelvic US: Radiologist's impression: FINDINGS: Uterus: Uterus is anteverted and normal in size at 12.6 x 8.2 x 10.5 cm. The myometrium is heterogeneous. The endometrium measures 76 mm combined thickness. Extensive heterogeneous blood products expanding the endometrial cavity. A Bakri balloon is noted. Other: No pathologic free abdominal or pelvic fluid. IMPRESSION: Extensive heterogeneous blood products present within the endometrial cavity. Labs 04/22/23 06:03 04/22/23 06:03 Labs: Laboratory Results - last 24 hr 04/21/23 04/21/23 04/22/23 14:14 19:11 06:03 WBC 13.0 H 13.0 H RBC 4.14 2.53 L Hgb 11.1 L 9.0 L 6.8 L* Hct 34.4 L 28.2 L 20.6 L* MCV 83.1 81.2 MCH 27.0 26.7 MCHC 32.4 32.9 RDW 23.2 H 20.9 H Plt Count 322 176 Neut % (Auto) 77.5 H Not Reportable Lymph % (Auto) 15.3 L Not Reportable [place] % (Auto) 5.2 Not Reportable Eos % (Auto) 0.7 L Not Reportable Baso % (Auto) 1.3 Not Reportable Neut # (Auto) 11689 H Lymph # (Auto) 2000 Not Reportable [place] # (Auto) 700 Not Reportable Eos # (Auto) 100 Baso # (Auto) 200 H Not Reportable Total Counted 100 Seg Neutrophils % 81.0 H Lymphocytes % (Manual) 13.0 L Monocytes % (Manual) 5.0 Basophils % (Manual) 1.0 Neutrophils # (Manual) 12340 H RBC Morphology See below Normal morphology Anisocytosis 2+ H Rouleaux 1+ H PT 12.3 INR 1.1 APTT 29 Sodium 136 L 135 L Potassium 3.9 4.0 Chloride 105 106 Carbon Dioxide 24 22 BUN 13 9 Creatinine 0.59 0.58 Estimated GFR > 60 > 60 BUN/Creatinine Ratio 22.0 15.5 Glucose 94 132 H Lactate 2.9 H Calcium 9.0 8.0 L Total Bilirubin 0.4 0.1 L AST 35 29 ALT 24 18 Alkaline Phosphatase 240 H 119 D Total Protein 7.0 4.8 L Albumin 3.8 2.6 L Globulin 3.2 2.2 Albumin/Globulin Ratio 1.2 1.2 HCG, Quant 22.2 Blood Type O Positive Antibody Screen Negative Crossmatch See Detail Assessment & Plan Assessment and Plan (1) hemorrhage: Status: Acute (2) Retained products of conception: Status: Acute (3) Anemia due to blood loss: Status: Acute Plan Comments: Sepsis workup initiated and will change antibiotics to IV gentamicin and clindamycin for broader coverage. Will transfuse an additional 2 units of packed red blood cells along with 2 units of FFP today and recheck labs later today. Will begin deflating Bakri balloon incrementally with plans to have it removed no later than this afternoon. Once Bakri balloon is removed, Jones will be able to be removed and the patient can become more ambulatory. Findings of retained clots in the uterus is not a surprise and will manage expectantly unless the patient experiences significant vaginal bleeding post Bakri removal. If that should happen, Interventional Radiology referral to [facility] would be appropriate. Further evaluation/treatment decisions will be based on the results of studies mentioned above. Time Spent With Patient Time: Total time spent is greater than 50% in coordination of care (as documented) at patient's floor/unit and/or counseling patient: Time with patient: 25 - 35 minutes
--- NOTE | 2023-04-22 08:25 | DI.US.S_ITS ---
PROCEDURE: US PELVIC LIMITED INDICATIONS: Rule out occult hematometra w/ Bakri balloon in place. TECHNIQUE: Real-time transabdominal scanning was performed of the pelvic organs, with image documentation. COMPARISON: None. FINDINGS: Uterus: Uterus is anteverted and normal in size at 12.6 x 8.2 x 10.5 cm. The myometrium is heterogeneous. The endometrium measures 76 mm combined thickness. Extensive heterogeneous blood products expanding the endometrial cavity. A Bakri balloon is noted. Other: No pathologic free abdominal or pelvic fluid. IMPRESSION: Extensive heterogeneous blood products present within the endometrial cavity. We strive to produce accurate, complete, and clear reports of imaging services. To assist us in improving patient care, this report was composed using standard report templates and voice recognition software. Therefore, it may contain abnormal punctuation, insertions and/or omissions. Occasional wrong-word or sound-alike substitutions may occur. Though we review the report and make efforts to correct it, we do recommend that the report be read carefully in proper context to recognize any text inaccuracies. Dictated by: Uvaldo Hodge M.D. on 04/22/2023 at 10:10 Approved by: Uvaldo Hodge M.D. on 04/22/2023 at 10:11
[2023-04-22 08:47] LABS: Lactate 2HR (Lactic Acid Rflx) 2.9 mmol/L (0.7-2.1)
[2023-04-22] MEDS: GENTAMICIN 320 MG in SODIUM CHLORIDE 0.9% 100 ML 108 MG IV (09:18)
[2023-04-22] MEDS: CLINDAMYCIN 900 MG/50 ML PIGGYBACK 50 MG IV ×2 (10:52→19:25)
--- NOTE | 2023-04-22 10:54 | PC.NURSE ---
1020 30 cc removed from Bakri balloon, U/S done on patient, report received. 1 unit of blood infused, FFP infusing. Patient vital signs stable, HR elevated. Patient states does not feel feverish. Feels tired, pain 3-4/10. Bleeding from vagina scant. Uterus tender to palpation.
--- NOTE | 2023-04-22 11:10 | TAR.TRANSNT ---
Barcode override for FFP due to thawed product. Updated product code and expiration date verified with Matilde from lab
--- NOTE | 2023-04-22 12:33 | PC.NURSE ---
1200 25cc removed from Bakri, per Dr. Coffey, remove 25 per hour until ready to be removed. 1 unit FFP complete, second RBC to be started.
--- NOTE | 2023-04-22 14:30 | PC.NURSE ---
1405 Dr Coffey removed Bakri balloon, minimal bleeding present. Pericare provided. Second unit FFP infusing. Jones catheter removed. Patient pain 6/10, oxycodone given. Patient has elevated temperature, provider notified. Will continue to monitor.
--- NOTE | 2023-04-22 16:01 | PC.NURSE ---
1530 FFP finished infusing, patient up to bathroom, able to urinate. Bedding changed, gown changed. Patient up to chair. Orders for labwork put in. Per provider Alexx, depending on labwork, patient may need to stay another night. Patient asked if babies could stay with them, I advised yes they are welcome to stay in the center with them.
[2023-04-22 17:15] LABS: Alanine Aminotransferase 16 IU/L (<35); Albumin 2.7 g/dL (3.5-5.0); Albumin Globulin Ratio 1.1 (1.0-2.8); Alkaline Phosphatase 123 U/L (38-126); Aspartate Aminotransferase 22 IU/L (14-36); BUN Creatinine Ratio 14.9 (6-22); Basophils Absolute Auto 0 /uL (0-100); Basophils Percent Auto 0.4 % (0-2); Bilirubin Total 0.3 mg/dL (0.2-1.3); Blood Urea Nitrogen 10 mg/dL (7-17); Calcium 7.5 mg/dL (8.4-10.2); Carbon Dioxide 24 mmol/L (22-32); Chloride 108 mmol/L (98-107); Eosinophils Absolute Auto 0 /uL (0-450); Eosinophils Percent Auto 0.6 % (2-4); Estimated Glomerular Filt Rate > 60 mL/min (>60); Globulin 2.4 g/dL (1.7-4.1); Glucose 111 mg/dL (70-100); HEMOLYSIS 15 (0-50); Lymphocytes Absolute Auto 800 /uL (1100-4500); Lymphocytes Percent Auto 13.4 % (25-40); Mean Corpuscular HGB Conc 33.2 % (30-36); Mean Corpuscular Hemoglobin 27.4 PG (26-34); Mean Corpuscular Volume 82.6 fL (80-100); Monocytes Absolute Auto 100 /uL (0-900); Neutrophils Absolute Auto 5200 /uL (1500-7000); Neutrophils Percent Auto 83.6 % (50-75); Platelet Count 112 X10^3/uL (150-400); Potassium 3.5 mmol/L (3.4-5.1); Red Blood Cell Count 2.54 X10^6/uL (4.0-5.2); Red Cell Distribution Width 19.9 % (11.6-14.8); Sodium 136 mmol/L (137-145); Total Protein 5.1 g/dL (6.3-8.2); White Blood Cell Count 6.2 X10^3/uL (4.5-11.0)
[2023-04-22 17:18] LABS: Add Manual Diff / Slide Review SLIDE REVIEW
[2023-04-22 17:20] LABS: Platelet Estimate Decreased on smear
[2023-04-22 17:24] LABS: Anisocytosis 1+
[2023-04-22 17:41] LABS: INR 1.2 (0.9-1.3); Prothrombin Time 13.4 SECONDS (10.1-12.7)
[2023-04-22 17:48] LABS: Fibrinogen 277 mg/dL (211-428)
[2023-04-22] MEDS: fentaNYL 100 MCG/2 ML INJ 50 MCG IV (17:55)
[2023-04-22] MEDS: fentaNYL 100 MCG/2 ML INJ IV (18:01)
--- NOTE | 2023-04-22 18:27 | PC.NURSE ---
1814 Lab work came back, H&H went from 6.8 to 7[address] Aguirre at bedside with ultrasound. Provider identifies blood in uterus. Attempts a pelvic exam to extract probable clots. Unsuccessful due to patient intolerance of the exam. Provider attempting to to transfer patient to another facility. Awaiting bed placement. Patient agreeable to plan. Temperature slightly elevated, HR elevated, BP WNL, oxygen sats WNL. Scant bleeding per vagina. Patient complains of body aches, shivers, cramping in uterus.
--- NOTE | 2023-04-22 19:35 | PC.NURSE ---
1845 Provider Timothy would like to run the FFP before expiration. Currently cannot find a bed at another facility to transfer to. Report given to Livier Brown
--- NOTE | 2023-04-22 19:48 | TAR.TRANSNT ---
1420 FFP product barcode and expiration date unscannable due to product being thawed. Barcode had to be bypassed.
--- NOTE | 2023-04-22 19:51 | TAR.TRANSNT ---
1899 FFP administration required bypass of product and expiration barcodes due to product being thawed
--- NOTE | 2023-04-22 19:54 | P.PN_ITS ---
Subjective Subjective Date Patient Seen: 04/22/23 Interval history: 27yo [id number] s/p D&C for delayed PPH last night, POD#1. Bakri was placed last night and removed today ~1400. US shows persistent extensive heterogeneous blood products within uterus. She received 5u pRBCs and 3u FFP total since surgery. Minimal increase in Hgb 6.8 (7.0). Platelets decreased 112 (176) and we do not have platelets here. INR 1.2. PT 13.4. Lactate improved from 2.9 to 2.0. She has been receiving gentamicin and clindamycin. Feels lightheaded and with pelvic cramping. She strongly desires future childbearing as much as possible. Exam Vital Signs (past 8 hours): - 04/22/23 12:12 04/22/23 12:35 04/22/23 12:54 Temperature 98.6 F 98.7 F Pulse Rate 123 H 125 H Respiratory Rate 20 20 Blood Pressure 108/57 L 98/52 L 108/54 L Pulse Oximetry Oxygen Delivery Method 04/22/23 13:00 04/22/23 13:44 04/22/23 14:06 Temperature 99.8 F H 100.7 F H Pulse Rate 119 H 122 H Respiratory Rate 18 22 Blood Pressure 104/54 L 100/57 L Pulse Oximetry 99 Oxygen Delivery Method Room Air 04/22/23 14:28 04/22/23 14:35 04/22/23 15:24 Temperature 99.9 F H 100.1 F H Pulse Rate 121 H 130 H Respiratory Rate 20 22 Blood Pressure 106/57 L 99/51 L Pulse Oximetry 98 Oxygen Delivery Method Room Air 04/22/23 18:23 04/22/23 19:00 04/22/23 19:19 Temperature 100.6 F H 100.3 F H 99.3 F Pulse Rate 122 H 116 H 116 H Respiratory Rate 22 20 18 Blood Pressure 109/59 L 109/63 104/61 Pulse Oximetry 98 Oxygen Delivery Method 04/22/23 19:49 Temperature 98.4 F Pulse Rate 120 H Respiratory Rate 16 Blood Pressure 109/63 Pulse Oximetry Oxygen Delivery Method Oxygen Delivery Method Room Air Const General: cooperative HENMT Head: normal to inspection Neck Neck: normal visual inspection Resp Effort & Inspection: normal respiratory effort Bimanual Exam- Vagina & Uterus: enlarged (cervix 1cm, unable to tolerate exam with fentanyl 100mcg) Skin General: no rashes or lesions noted Neuro General: patient oriented x3 Extrem General: normal to inspection Psych Appearance: grossly normal Objective Imaging US - abdomen: Radiologist's impression: PROCEDURE: US PELVIC LIMITED INDICATIONS: Rule out occult hematometra w/ Bakri balloon in place. TECHNIQUE: Real-time transabdominal scanning was performed of the pelvic organs, with image documentation. COMPARISON: None. FINDINGS: Uterus: Uterus is anteverted and normal in size at 12.6 x 8.2 x 10.5 cm. The myometrium is heterogeneous. The endometrium measures 76 mm combined thickness. Extensive heterogeneous blood products expanding the endometrial cavity. A Bakri balloon is noted. Other: No pathologic free abdominal or pelvic fluid. IMPRESSION: Extensive heterogeneous blood products present within the endometrial cavity. Labs 04/22/23 Unknown 04/22/23 Unknown Labs: Laboratory Results - last 24 hr 04/21/23 04/22/23 04/22/23 14:14 06:03 08:25 WBC 13.0 H RBC 2.53 L Hgb 6.8 L* Hct 20.6 L* MCV 81.2 MCH 26.7 MCHC 32.9 RDW 20.9 H Plt Count 176 Neut % (Auto) Not Reportable Lymph % (Auto) Not Reportable [place] % (Auto) Not Reportable Eos % (Auto) Not Reportable Baso % (Auto) Not Reportable Neut # (Auto) Lymph # (Auto) Not Reportable [place] # (Auto) Not Reportable Eos # (Auto) Baso # (Auto) Not Reportable Total Counted 100 Seg Neutrophils % 81.0 H Lymphocytes % (Manual) 13.0 L Monocytes % (Manual) 5.0 Basophils % (Manual) 1.0 Neutrophils # (Manual) 08494 H Platelet Estimate RBC Morphology Normal morphology Anisocytosis Rouleaux 1+ H PT INR Fibrinogen Sodium 135 L Potassium 4.0 Chloride 106 Carbon Dioxide 22 BUN 9 Creatinine 0.58 Estimated GFR > 60 BUN/Creatinine Ratio 15.5 Glucose 132 H Lactate 2.9 H 2.9 H Calcium 8.0 L Total Bilirubin 0.1 L AST 29 ALT 18 Alkaline Phosphatase 119 D Total Protein 4.8 L Albumin 2.6 L Globulin 2.2 Albumin/Globulin Ratio 1.2 Blood Type O Positive Antibody Screen Negative Crossmatch See Detail 04/22/23 04/22/23 17:17 Unknown WBC 6.2 D RBC 2.54 L Hgb 7.0 L Hct 21.0 L MCV 82.6 MCH 27.4 MCHC 33.2 RDW 19.9 H Plt Count 112 L Neut % (Auto) 83.6 H Lymph % (Auto) 13.4 L [place] % (Auto) 2.0 L Eos % (Auto) 0.6 L Baso % (Auto) 0.4 Neut # (Auto) 5200 Lymph # (Auto) 800 L [place] # (Auto) 100 Eos # (Auto) 0 Baso # (Auto) 0 Total Counted Seg Neutrophils % Lymphocytes % (Manual) Monocytes % (Manual) Basophils % (Manual) Neutrophils # (Manual) Platelet Estimate Decreased on smear RBC Morphology See below Anisocytosis 1+ H Rouleaux PT 13.4 H INR 1.2 Fibrinogen 277 Sodium 136 L Potassium 3.5 Chloride 108 H Carbon Dioxide 24 BUN 10 Creatinine 0.67 Estimated GFR > 60 BUN/Creatinine Ratio 14.9 Glucose 111 H Lactate 2.0 Calcium 7.5 L Total Bilirubin 0.3 AST 22 ALT 16 Alkaline Phosphatase 123 Total Protein 5.1 L Albumin 2.7 L Globulin 2.4 Albumin/Globulin Ratio 1.1 Blood Type Antibody Screen Crossmatch [facility] Social History household members: spouse Smoking Status: Never smoker Assessment & Plan Assessment and plan (1) Retained products of conception: Status: Acute (2) hemorrhage: Qualifiers: hemorrhage type: delayed hemorrhage Qualified Code(s): O72.2 - Delayed and secondary hemorrhage Status: Acute (3) Anemia due to blood loss: Status: Acute Plan 27yo [id number] s/p D&C for delayed PPH, POD#1, concern for ongoing hemorrhage, hematometra - D&C, uterotonics, Bakri balloon x12h 04/21 - s/p total 5u pRBCs, 3u FFP. No platelets at [facility]. Minimal increase in H/h with decrease in platelets, borderline normal fibrinogen. Lactate initially 2.9, improved 2.0 likely due to PPH. Cultures pending. - Appreciate transfer to [facility] due to continued need for blood products, limited resources at [facility] including IR. Patient strongly desires hysterectomy as she is not completed with childbearing. - Transfer to [facility] at [facility] Time Spent With Patient Time with patient: 70 minutes or more, with 50% spent counseling/coordinating (Critical care)
--- NOTE | 2023-04-22 20:10 | PC.NURSE ---
Fundal checks were completed regularly, fundus remained firm throughout the day, 2-3 below the umibilicus. Bleeding remained scant.
--- NOTE | 2023-04-22 21:05 | PC.NURSE ---
PRBC's # 1 of 2 is transfusing currently. pt charmaine well. up OOB to bathroom, voided qs, see I & 0. Transport team here to transport to [place] for further care.
[2023-04-22 21:28] LABS: Influenza A - CEPHEID Flu A NEGATIVE (NEGATIVE); Influenza B - CEPHEID Flu B NEGATIVE (NEGATIVE); Respiratory Syncytial Virus Negative (Negative)
[2023-04-22 21:29] LABS: COVID-19 CEPHEID 4-PLEX PCR Negative (Negative)
--- NOTE | 2023-04-22 22:03 | PC.NURSE ---
pt transferred to [place] via helicopter. transfusion #1 in progress.
== END 2023-04-22 21:20 | disposition home or self-care (01) ==
LOC: ED 14:30 → AC 15:23 → LABOR 22:51
PROVIDERS: Obstetrics & Gynecology; Admitting Provider Obstetrics & Gynecology; Emergency Provider Emergency Medicine; Referring Provider Emergency Medicine; Visit Provider Obstetrics & Gynecology
PROC: (CPT 58120; principal; 2023-04-21 17:15)
DX: O72.2 Delayed and secondary postpartum hemorrhage (principal); D62 Acute posthemorrhagic anemia
CPT/HCPCS: 59160; 59899; 0241U; 36415; 36430; 76856; 76857; 80053; 83605; 84702; 85007; 85014; 85018; 85025; 85384; 85610; 85730; 86850; 86900; 86901; 86927; 87040; 87086; 87186; 93005; 93010; 96372; 96374; 96375; 99285; 99291; G0378; P9016; J0330; J0690; J1100; J1170; J1885; J2060; J2210; J2250; J2270; J2405; J2590; J2704; J3010

== ENCOUNTER → 2023-11-13 07:55 | Outpatient (CLI) | payer OTHER, MEDICAID, SELFPAY ==
[2023-11-13 08:42] LABS: Influenza A - CEPHEID Flu A NEGATIVE (NEGATIVE); Influenza B - CEPHEID Flu B NEGATIVE (NEGATIVE); Respiratory Syncytial Virus Negative (Negative)
[2023-11-13 08:47] LABS: COVID-19 CEPHEID 4-PLEX PCR Negative (Negative)
== END ==
PROVIDERS: Visit Provider Nurse Practitioner Family
DX: R05.1 Acute cough (principal); J02.9 Acute pharyngitis, unspecified
CPT/HCPCS: 87635; 87400 ×2; 87420; 0241U; 87070; 87077; 87147; 87880